=== PATIENT | female | born 1945 ===

== ENCOUNTER 2020-05-09 13:41 | Emergency (ER) | payer SELFPAY ==
[2020-05-09 13:51] VITALS: BP 128/68
[2020-05-09] MEDS ORDERED: METHYLPREDNISOLONE INJ 125 MG/2 ML SDV IV ONE (14:12)
[2020-05-09] MEDS ORDERED: FAMOTIDINE INJ/PF 20 MG/2 ML SDV IV ONE (14:12)
--- NOTE | 2020-05-09 14:18 | ER Document Report ---
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 Patient started with chest heaviness, chest tightness, back pain, dry mouth after the dye was injected, she was given 50 mg of Benadryl through her IV approximately 40 minutes ago and advised to come to the emergency room. She states that she does feel somewhat better after getting the Benadryl. Denies any coughing, shortness of breath, nausea, vomiting, abdominal pain, numbness or tingling down arms legs, face. I have greeted and performed a rapid initial assessment of this patient. A comprehensive ED assessment and evaluation of the patient, analysis of test results and completion of the medical decision making process will be conducted by additional ED providers. PHYSICAL EXAMINATION: GENERAL: Well-appearing, well-nourished and in no acute distress. HEAD: Atraumatic, normocephalic. EYES: Pupils equal round extraocular movements intact, conjunctiva are normal. ENT: Uvula midline. airway patent, no trismus. No tongue swelling, no lip swelling. no drooling, speech is clear. NECK: Normal range of motion CV: s1, s2 regular LUNGS: No respiratory distress - Related Data Home Medications: DM. THYROID. LOSARTAN. METHADONE Past Medical History - Social History Chew tobacco use (# tins/day): No Frequency of alcohol use: None Drug Abuse: None Physical Exam - Vital signs Vitals: Temp Pulse Resp BP Pulse Ox 98.0 F 62 20 128/68 H 96 05/09/20 13:50 05/09/20 13:50 05/09/20 13:50 05/09/20 13:50 05/09/20 13:50 Course - Vital Signs Vital signs: Temp Pulse Resp BP Pulse Ox 98.0 F 62 20 128/68 H 96 05/09/20 14:08 05/09/20 13:50 05/09/20 13:50 05/09/20 13:50 05/09/20 13:50 Doctor's Discharge - Discharge Referrals: DONG CHÁVEZ MD [Primary Care Provider] - Follow up as needed
--- NOTE | 2020-05-09 14:45 | RADIOLOGY REPORT (SQ) ---
EXAM DESCRIPTION: CHEST 2 VIEWS IMAGES COMPLETED DATE/TIME: 05/09/2020 2:33 pm REASON FOR STUDY: chest tightness, back pain s/p rxn to contrast dye COMPARISON: None. EXAM PARAMETERS: NUMBER OF VIEWS: two views TECHNIQUE: Digital Frontal and Lateral radiographic views of the chest acquired. RADIATION DOSE: NA LIMITATIONS: none FINDINGS: LUNGS AND PLEURA: No opacities, masses or pneumothorax. No pleural effusion. MEDIASTINUM AND HILAR STRUCTURES: No masses or contour abnormalities. HEART AND VASCULAR STRUCTURES: Heart normal size. No evidence for failure. BONES: No acute findings. Degenerative changes in the spine. HARDWARE: None in the chest. Clips in the upper abdomen. OTHER: No other significant finding. IMPRESSION: NO ACUTE RADIOGRAPHIC FINDING IN THE CHEST. TECHNICAL DOCUMENTATION: JOB ID: [id number] 2010 [employer]- All Rights Reserved Reading location - IP/workstation name: [email or web address]
[2020-05-09 15:38] LABS: ABSOLUTE EOSINOPHILS # (AUTO) 0.1 10^3/uL (0.0-0.6); ABSOLUTE LYMPHOCYTES (AUTO) 1.7 10^3/uL (0.5-4.7); ABSOLUTE MONOCYTES (AUTO) 0.4 10^3/uL (0.1-1.4); ABSOLUTE NEUT (AUTO) 6.1 10^3/uL (1.7-8.2); BASOPHILS % (AUTO) 0.4 % (0-2); EOSINOPHILS % (AUTO) 0.8 % (0-6); HEMATOCRIT 47.1 % (36.0-47.0); HEMOGLOBIN 15.3 g/dL (12.0-15.5); LYMPHOCYTES % (AUTO) 20.4 % (13-45); MEAN CORPUSCULAR HEMOGLOBIN 26.8 pg (27.0-33.4); MEAN CORPUSCULAR HGB CONC 32.5 g/dL (32.0-36.0); MEAN CORPUSCULAR VOLUME 83 fl (80-97); PLATELET COUNT 281 10^3/uL (150-450); RED CELL DISTRIBUTION WIDTH 14.9 % (11.5-14.0); SEGMENTED NEUTROPHILS % (AUTO) 73.4 % (42-78); TOTAL CELLS COUNTED % (AUTO) 100 %; WHITE BLOOD COUNT 8.4 10^3/uL (4.0-10.5)
--- NOTE | 2020-05-09 15:54 | ER Document Report ---
Doctor's Note Notes: 05/09/20 15:50 I was notified by nursing that the patient wanted to leave. In short this is a 74-year-old female who received MRI contrast. Shortly afterwards she developed chest tightness that radiated up into her neck. She states she has a history of anaphylactic reaction in the past, states this felt similar. She was treated with Benadryl. She was seen through triage, had laboratory investigations, imaging, EKG ordered. She states that her chest tightness is gone. Her feeling in her throat has gone. She denies any difficulty breathing or swallowing. She states she would like to leave. This patient has a history of hypertension, CVA, angina, Bharathi's thyroiditis, diabetes. On examination, briefly, the patient has no lip swelling, no posterior pharyngeal swelling. Her neck shows no signs of edema. Her heart is regular rate and rhythm, lungs are clear to auscultation bilaterally. I explained to the patient that chest tightness in a patient with her multiple medical issues could be secondary to multiple things. Certainly she was not even treated entirely for anaphylaxis. She has a normal E KG, which showed a sinus mechanism with a rate of 60 bpm. Left axis deviation. First-degree AV block. No acute ST changes concerning for ischemia or infarction. Unfortunately, this is not significant enough to rule out anginal pain or other issues. She voiced understanding. I explained to the patient that she could have a fatal condition, including untreated anaphylaxis, heart rhythm disturbance, angina, VA. Her work-up has not completed. She states she voiced understanding, her symptoms have abated, and she would like to leave. She decided to sign out AGAINST MEDICAL ADVICE. She voiced understanding to these risks and understands she can return at any time if her symptoms return. She also states that she does have an EpiPen in her purse, knows how to administer it, and knows that she needs to come back to the ED should she need to.
--- NOTE | 2020-05-09 21:25 | EKG REPORT ---
SEVERITY:- OTHERWISE NORMAL ECG - SINUS RHYTHM BORDERLINE LEFT AXIS DEVIATION : Confirmed by: Clark Kan MD 09-May-2020 21:24:02
== END 2020-05-09 15:48 | disposition left against medical advice (07) ==
LOC: ER 13:41
DX: Z53.20 Procedure and treatment not carried out because of patient's decision for unspecified reasons (principal); R07.9 Chest pain, unspecified; M54.2 Cervicalgia
CPT/HCPCS: 36415; 71046; 85025; 93005; 93010; 99281